=== PATIENT | male | born 1995 | race Caucasian/White ===

== ENCOUNTER 2020-04-10 00:11 | Emergency (ER) | payer OTHER ==
[~2020-04-10] VITALS: Ht 175.3 cm; Wt 95.7 kg
[2020-04-10 00:18] VITALS: Ht 175.3 cm; Wt 95.7 kg
[2020-04-10 01:57] VITALS: BP 145/95
== END 2020-04-10 01:58 | disposition home or self-care (01) ==
LOC: ED 00:11
DX: S90.121A Contusion of right lesser toe(s) without damage to nail, initial encounter (principal); Z88.0 Allergy status to penicillin; W22.8XXA Striking against or struck by other objects, initial encounter; Y93.89 Activity, other specified; Y92.89 Other specified places as the place of occurrence of the external cause; Y99.8 Other external cause status
CPT/HCPCS: Q0092